=== PATIENT | male | born 1960 | race Caucasian/White ===

== ENCOUNTER → 2024-01-10 06:14 | Day surgery (SDC) | payer OTHER, SELFPAY | LOC: GI 06:14 | PROVIDERS: ATTENDING PHYSICIAN Internal Medicine | DX: Z12.11 Encounter for screening for malignant neoplasm of colon (principal); Z86.010 Personal history of colon polyps; K57.30 Diverticulosis of large intestine without perforation or abscess without bleeding; K64.9 Unspecified hemorrhoids; K62.89 Other specified diseases of anus and rectum; K62.1 Rectal polyp | CPT/HCPCS: 45380; 88305 ==